=== PATIENT | female | born 1990 | race Hispanic/Latino ===

== ENCOUNTER 2022-10-24 13:51 | Inpatient (IN) | payer SELFPAY ==
[2022-10-24] MEDS ORDERED: Acetaminophen 500 MG TAB ONE (14:29)
[2022-10-24] MEDS ORDERED: Ondansetron PF 4 MG/2 ML Vial ONE ×2 (14:29→19:51)
[2022-10-24] MEDS ORDERED: Ketorolac Tromethamine 30 MG/ML VIAL ONE ×2 (14:29→19:51)
[2022-10-24 14:45] LABS: Hemoglobin 10.2 g/dL (12.0-16.0); Mean Corpuscular HGB CONC 33.6 g/dL (32.0-36.0); Mean Corpuscular Hemoglobin 30.6 pg (27.0-31.0); Mean Corpuscular Volume 91.3 fl (78.0-98.0); Mean Platelet Volume 10.4 fL (7.4-10.4); Platelet Count 208 10x3/uL (130-400); Red Blood Cell (RBC) Count 3.33 mill/uL (4.20-5.40); White Blood Cell (WBC) Count 17.6 10x3/uL (4.8-10.8)
[2022-10-24 14:50] LABS: Delete Auto Diff?? YES; Manual Diff?? YES
[2022-10-24 14:58] LABS: BHCG - Serum Negative (NEGATIVE); Pregs Control Background? CLEAR/WHITE (CLR/WHITE); Pregs Control Bar Appear? YES (CONTROL BAR)
[2022-10-24 15:07] LABS: ALT (SGPT) 58 U/L (8-55); AST (SGOT) 29 U/L (5-34); Albumin 3.5 g/dL (3.5-5.0); Alkaline Phosphatase 155 U/L (40-110); Anion Gap 11 mmol/L (10-20); BUN (Urea Nitrogen) 11 mg/dL (7.0-18.7); Bilirubin, Total 0.8 mg/dL (0.2-1.2); Calc. Creatinine Clearance 0 mL/min (70-130); Calcium 9.2 mg/dL (7.8-10.44); Carbon Dioxide 24 mmol/L (22-29); Chloride 103 mmol/L (98-107); Estimated GFR 123; Globulin 3.4 g/dL (2.4-3.5); Glucose 103 mg/dL (70-105); Lipase 5 U/L (8-78); Potassium 3.6 mmol/L (3.5-5.1); Protein, Total 6.9 g/dL (6.0-8.3); Sodium 134 mmol/L (136-145)
[2022-10-24 15:13] LABS: Band 29 % (5-11); CellaVision Operator ID LAB.MJL; Lymphocytes 5 % (21-51); Monocytes 6 % (0-10); Neutrophil 60 % (42-75); Platelet Adequacy Comment Platelets Normal; Polychromasia SLIGHT = 2-3 cells HPF (0-2); Total Cell Count 100
[2022-10-24] MEDS ORDERED: cefTRIAXone (ROCEPHIN) 2 GM VIAL ONE (15:29)
[2022-10-24 15:45] LABS: Bacteria/HPF 4+ HPF (None Seen); Bilirubin Negative (Negative); Blood, Urine 2+ (Negative); CAUTI Indications for Culture Pelvic or flank pain; Clarity Turbid (Clear); Glucose, Urine (Dipstick) Normal (Negative); Ketone, Urine Trace mg/dL (Negative); Leukocyte 500 Leu/uL (Negative); Nitrite Negative (Negative); Protein, Urine (Dipstick) 70 mg/dL (Neg-Trace); RBC/HPF 0-3 HPF (0-3); Specific Gravity, Urine 1.012 (1.002-1.036); Squamous Epithelial 0-3 HPF (0-3); WBC/HPF 21-50 HPF (0-3)
[2022-10-24 16:05] LABS: Urine Culture Reflex Yes Yes
[2022-10-24] MEDS ORDERED: Ondansetron PF 4 MG/2 ML Vial IVP PRN (16:47)
[2022-10-24] MEDS ORDERED: fentaNYL PF 100 MCG/2 ML SYRINGE ONE (19:37)
[2022-10-24] MEDS ORDERED: Iopamidol 0 ML ONE (19:44)
[2022-10-24] MEDS ORDERED: PROPOFOL 200 MG/20 ML VIAL ONE (19:51)
[2022-10-24] MEDS ORDERED: Dexamethasone 20 MG/5 ML VIAL ONE (19:51)
[2022-10-24] MEDS ORDERED: Lidocaine 1% PF 5 ML VIAL ONE (19:51)
[2022-10-24] MEDS ORDERED: Promethazine HCl 25 MG/ML VIAL IM PRN (20:29)
[2022-10-24] MEDS ORDERED: Ondansetron HCl/PF 4 MG/2 ML Vial IVP PRN (20:29)
[2022-10-24] MEDS ORDERED: Meperidine HCl/PF 25 MG/ML VIAL SLOW IVP PRN (20:29)
[2022-10-24 21:36] VITALS: BMI 23.0
[2022-10-24] MEDS: Sodium Chloride 0.9% 1,000 ML IV SCH (22:42)
[2022-10-25] MEDS: Morphine 4 MG/ML VIAL SLOW IVP PRN (00:15)
[2022-10-25] MEDS: Sodium Chloride 0.9% 1,000 ML IV SCH ×4 (00:27→21:50)
[2022-10-25 01:05] LABS: Magnesium 1.6 mg/dL (1.6-2.6)
[2022-10-25 01:11] LABS: Troponin I Less than 0.010 ng/mL (< 0.028)
[2022-10-25] MEDS ORDERED: Magnesium 2 GM/50 ML(in water) 2 GM in Premix Bag 1 BAG IVPB SCH (02:45)
[2022-10-25] MEDS: Acetaminophen 325 MG TAB PO PRN (03:11)
[2022-10-25] MEDS ORDERED: cefTRIAXone\\ROCEPHIN 1 GM in Sodium Chloride 0.9% 100 ML IVPB SCH (15:00)
[2022-10-25 16:00] LABS: Hemoglobin 9.4 g/dL (12.0-16.0); Mean Corpuscular HGB CONC 32.5 g/dL (32.0-36.0); Mean Corpuscular Hemoglobin 31.1 pg (27.0-31.0); Mean Platelet Volume 10.8 fL (7.4-10.4); Platelet Count 219 10x3/uL (130-400); RBC Distribution Width 12.4 % (11.5-14.5); Red Blood Cell (RBC) Count 3.02 mill/uL (4.20-5.40); White Blood Cell (WBC) Count 12.7 10x3/uL (4.8-10.8)
[2022-10-25 16:04] LABS: Delete Auto Diff?? YES; Manual Diff?? YES; Mean Corpuscular Volume 95.7 fl (78.0-98.0)
[2022-10-25 16:19] LABS: Anion Gap 11 mmol/L (10-20); BUN (Urea Nitrogen) 13 mg/dL (7.0-18.7); Calc. Creatinine Clearance 119 mL/min (70-130); Carbon Dioxide 20 mmol/L (22-29); Chloride 109 mmol/L (98-107); Estimated GFR 123; Glucose 236 mg/dL (70-105); Sodium 136 mmol/L (136-145)
[2022-10-25 16:25] LABS: Band 34 % (5-11); Burr Cells MODERATE= 6-15 cells HPF (0-1); CellaVision Operator ID LAB.MJL; Lymphocytes 4 % (21-51); Monocytes 6 % (0-10); Neutrophil 56 % (42-75); Platelet Adequacy Comment Platelets Normal; Poikilocytosis SLIGHT = 6-15 cells HPF (0-5); Polychromasia SLIGHT = 2-3 cells HPF (0-2); Total Cell Count 99
[2022-10-26] MEDS: Acetaminophen 325 MG TAB PO PRN (02:05)
[2022-10-26] MEDS: Morphine 4 MG/ML VIAL SLOW IVP PRN (04:31)
[2022-10-26] MEDS: Sodium Chloride 0.9% 1,000 ML IV SCH (04:32)
[2022-10-26 06:31] LABS: Hemoglobin 8.4 g/dL (12.0-16.0); Mean Corpuscular HGB CONC 31.9 g/dL (32.0-36.0); Mean Corpuscular Hemoglobin 31.3 pg (27.0-31.0); Mean Corpuscular Volume 98.1 fl (78.0-98.0); Mean Platelet Volume 10.6 fL (7.4-10.4); Platelet Count 226 10x3/uL (130-400); RBC Distribution Width 12.6 % (11.5-14.5); Red Blood Cell (RBC) Count 2.68 mill/uL (4.20-5.40); White Blood Cell (WBC) Count 15.5 10x3/uL (4.8-10.8)
[2022-10-26 06:52] LABS: Anion Gap 10 mmol/L (10-20); BUN (Urea Nitrogen) 9 mg/dL (7.0-18.7); Calc. Creatinine Clearance 132 mL/min (70-130); Calcium 7.6 mg/dL (7.8-10.44); Carbon Dioxide 19 mmol/L (22-29); Chloride 111 mmol/L (98-107); Estimated GFR 126; Glucose 147 mg/dL (70-105); Potassium 4.2 mmol/L (3.5-5.1); Sodium 136 mmol/L (136-145)
[2022-10-26 07:02] LABS: Delete Auto Diff?? YES; Manual Diff?? YES
[2022-10-26 07:34] LABS: Band 25 % (5-11); CellaVision Operator ID LAB.GE; Lymphocytes 5 % (21-51); Macrocytosis SLIGHT = 6-15 cells HPF (0-5); Monocytes 7 % (0-10); Neutrophil 63 % (42-75); Platelet Adequacy Comment Platelets Normal; Polychromasia SLIGHT = 2-3 cells HPF (0-2); Total Cell Count 100
[2022-10-26 13:07] VITALS: BP 128/78; TEMP 98.2
== END 2022-10-26 11:52 | disposition home or self-care (01) | DRG 854 ==
LOC: ERS 13:51 → SURG A 16:27
PROVIDERS: ADMIT Internal Medicine; ATTEND Hospitalist
PROC: 3E03329 Introduction of Other Anti-infective into Peripheral Vein, Percutaneous Approach (ICD-10-PCS; principal; 2022-10-24)
PROC: 0T778DZ Dilation of Left Ureter with Intraluminal Device, Via Natural or Artificial Opening Endoscopic (ICD-10-PCS; 2022-10-24)
PROC: BT1F1ZZ Fluoroscopy of Left Kidney, Ureter and Bladder using Low Osmolar Contrast (ICD-10-PCS; 2022-10-24)
DX: A41.51 Sepsis due to Escherichia coli [E. coli] (principal); D62 Acute posthemorrhagic anemia; N13.6 Pyonephrosis; Z79.899 Other long term (current) drug therapy
CPT/HCPCS: 36415; 74176; 74420; 80048; 80053; 81001; 83605; 83690; 83735; 83880; 84484; 84703; 85025; 87040; 87077; 87086; 87149; 87186; 93005; 93010; 96374; 96375; C2617; J0696; J1100; J1885; J2270; J2405; J2704; J3475; J3490; J7050; Q9967